=== PATIENT | male | born 1940 | race Caucasian/White ===

== ENCOUNTER → 2016-10-28 | Outpatient (CLI) | payer OTHER ==
[~2016-10-28] MED LIST: AMLODIPINE BESY10 MG PO; ANORO ELLIPTA1 EACH IH; ASPIRIN325 MG PO; ATORVASTATIN CA40 MG PO; ATROVENT 00.5 MG/2.5 IH; BREO ELLIPTA 21 EACH IH; CEFDINIR300 MG PO; COMPAZINE10 MG PO; DIGOX250 MCG PO; DILTIAZEM 24HR240 MG PO; DUONEB 2.5-0.5 M3 ML AEROSOL; FAMOTIDINE40 MG PO; FISH OIL 1,0001 EAC7 PO; LIPITOR40 MG PO; LOVENOX80 MG/0.8 SC; METOPROLOL SUCC25 MG PO; METOPROLOL TART25 MG PO; METOPROLOL TART50 MG PO; NIASPAN,SLO-N1000 MG PO; NITROSTAT0.4 MG SL; OMEGA 3 PO; OMEGA-31000 M1 PO; PREDNISONE20 MG PO; PROAIR HFA8.5 GM IH; SPIRIVA RESPIMAT4 GM IH; SPIRIVA1 INHALATI IH; ST. JOSEPH ASPI81 MG PO; TAMIFLU75 MG PO; TAMSULOSIN HCL0.4 MG PO; TOPROL XL25 MG PO; XARELTO20 MG PO; [UNRECOGNIZED DRUG - OTHER] PO
[2016-10-28 10:28] LABS: HEMATOCRIT 48.6 % (38.0-50.0); MCH 30.6 PG (29.0-34.0); MCHC 32.9 G/DL (30.0-36.0); MCV 92.9 FL (86-99); MEAN PLAT.VOLUME 10.1 uM^3 (9.0-12.4); PLATELET COUNT 173 K/uL (156-360); RBC DIS.WIDTH-CV 13.3 % (11.8-14.6); RBC DIS.WIDTH-SD 45.1 % (39-53); RED BLOOD COUNT 5.23 M/uL (4.00-5.50)
[2016-10-28 10:41] LABS: INTER. NORMALIZED RATIO 1.1; PROTHROMBIN TIME 11.6 (9.2-11.2); PTT 25.7 (25-32)
== END | disposition home or self-care (01) ==
LOC: OPR 09:55 → EDSTATUS 10:00
PROVIDERS: Internal Medicine
PROC: 0BBJ3ZX Excision of Left Lower Lung Lobe, Percutaneous Approach, Diagnostic (ICD-10-PCS; principal; 2016-10-28)
DX: R91.1 Solitary pulmonary nodule (principal); I10 Essential (primary) hypertension; E78.5 Hyperlipidemia, unspecified; R05 Cough; J44.9 Chronic obstructive pulmonary disease, unspecified; Z79.51 Long term (current) use of inhaled steroids
CPT/HCPCS: 71010; 77012; 85027; 85610; 85730; 88305; 88312; B4087; J2250; J2405; J3010

== ENCOUNTER 2017-03-05 04:07 | Emergency (ER) | payer OTHER ==
[~2017-03-05] VITALS: Ht 185.4 cm; Wt 85.0 kg
[2017-03-05 05:34] LABS: CHLORIDE 108 mEq/L (99-109); SODIUM 147 mEq/L (136-147)
[2017-03-05 05:36] LABS: GLUCOSE 114 mg/dL (70-99)
[2017-03-05 05:37] LABS: ANION GAP 10 MEQ/L (2-14)
[2017-03-05 05:40] LABS: GFR ESTIMATE (CALCULATED) > 59 mL/min/; UREA NITROGEN (BUN) 16 mg/dL (9-23)
[2017-03-05 05:42] LABS: EOSINOPHIL (%) 1.2 % (0-5); EOSINOPHIL COUNT 0.1 K/uL (0-0.3); HEMATOCRIT 49.5 % (38.0-50.0); IMMATURE GRANULOCYTE (%) 0.6 % (0.0-0.7); IMMATURE GRANULOCYTE COUNT 0.1 K/uL; INSTRUMENT ABS NEUTROPHIL CT 7.7 K/uL; LYMPHOCYTE COUNT 1.1 K/uL (1.0-2.8); MCH 29.6 PG (29.0-34.0); MCHC 31.7 G/DL (30.0-36.0); MCV 93.2 FL (86-99); MEAN PLAT.VOLUME 9.8 uM^3 (9.0-12.4); MONOCYTE (%) 10.1 % (3-12); NEUTROPHIL (%) 76.8 % (45-76); NEUTROPHIL COUNT 7.7 K/uL (1.8-6.4); PLATELET COUNT 181 K/uL (156-360); RBC DIS.WIDTH-CV 12.9 % (11.8-14.6); RBC DIS.WIDTH-SD 43.8 % (39-53); RED BLOOD COUNT 5.31 M/uL (4.00-5.50)
[2017-03-05 05:57] LABS: ADD MIUA? NO; BILIRUBIN NEGATIVE; BLOOD NEGATIVE; COLOR YELLOW ((YELLOW)); GLUCOSE (STRIP) NEGATIVE; KETONES NEGATIVE; LEUKOCYTES NEGATIVE; NITRITE NEGATIVE; PROTEIN (STRIP) NEGATIVE; SPECIFIC GRAVITY 1.015 (1.000-1.030); UCUL ADDED? NO; UROBILINOGEN 0.2 MG/DL (0.2-1.0)
[2017-03-05] MEDS ORDERED: FLOMAX0.4 MG PO (06:15)
[2017-03-05 07:06] VITALS: BP 156/98
== END 2017-03-05 07:07 | disposition home or self-care (01) ==
LOC: EME 04:07
PROVIDERS: Emergency Medicine
PROC: 0T9B70Z Drainage of Bladder with Drainage Device, Via Natural or Artificial Opening (ICD-10-PCS; principal; 2017-03-05)
DX: R33.9 Retention of urine, unspecified (principal); E78.5 Hyperlipidemia, unspecified; J44.9 Chronic obstructive pulmonary disease, unspecified; Z79.01 Long term (current) use of anticoagulants; Z87.891 Personal history of nicotine dependence
CPT/HCPCS: 80048; 81003; 85025; 99281; 99284